=== PATIENT | male | born 1970 | race Caucasian/White ===

== ENCOUNTER → 2017-12-23 16:44 | Outpatient (CLI) | payer BC, SELFPAY ==
--- NOTE | 2017-12-23 16:53 | XR_ITS ---
XR shoulder RT min 2V HISTORY: ITS.REASON: ACUTE PAIN OF RIGHT SHOULDER ORDERING PHYSICIAN: LEXUS Harris PATIENT AGE: 47 years Comparison: None FINDINGS: No fracture or dislocation. No lytic or blastic change. There is normal mineralization. The joint spaces are well-preserved. There are minimal hypertrophic changes of the acromioclavicular joint inferiorly. The subacromial space is well-preserved. IMPRESSION: Minimal osteoarthritic change of the AC joint otherwise negative
== END ==
PROVIDERS: PCP Family Medicine; Visit Provider Physician Assistant
DX: M25.511 Pain in right shoulder (principal)
CPT/HCPCS: 73030

== ENCOUNTER → 2020-10-02 12:14 | Outpatient (CLI) | payer BC, SELFPAY ==
--- NOTE | 2020-10-02 12:20 | XR_ITS ---
PROCEDURE: XR SHOULDER LT MIN 2V CLINICAL INDICATION: LT SHOULDER PAIN COMPARISON: CR SHOULDCMRT XR shoulder RT min 2V from 12/23/2017 FINDINGS: No fracture or dislocation. No lytic or blastic change. There is normal mineralization. The joint spaces are well-preserved. No significant degenerative/arthritic changes. No erosive changes evident. Other findings:There is mild left apical pleural thickening. IMPRESSION: Negative left shoulder Dictated by: Abdullahi Pedersen MD 10/02/2020 14:40 Abdullahi Pedersen MD in [place] 10/02/2020 14:40
--- NOTE | 2020-10-02 12:20 | XR_ITS ---
PROCEDURE: XR CHEST 2V CLINICAL HISTORY: LT CHEST PAIN COMPARISON: No exams were available for comparison FINDINGS: The cardiomediastinal silhouette and pulmonary vascularity are within normal limits. The lungs are clear without infiltrates, suspicious nodules, or pleural effusions. Calcified granuloma is present in middle lobe. No acute bony findings. IMPRESSION: No acute findings. Dictated by: Abdullahi Pedersen MD 10/02/2020 14:32 Abdullahi Pedersen MD in [place] 10/02/2020 14:32
== END ==
PROVIDERS: PCP Family Medicine; Visit Provider Family Medicine
DX: R07.9 Chest pain, unspecified (principal); M25.512 Pain in left shoulder
CPT/HCPCS: 71046; 73030

== ENCOUNTER → 2020-10-17 08:10 | Outpatient (CLI) | payer BC, SELFPAY ==
--- NOTE | 2020-10-17 | CA_ITS ---
APPROVED REPORT Exam: Exercise Treadmill Technologist: Rosemarie Eldridge, Ht: 5 ft 9 in Wt: 178 lbs BSA: 1.97 m2 HR: 95 bpm BP: 132/83 mmHg Rhythm: SINUS RHYTHM Medical History Medical History: HTN Medications: HCTZ,,,,, Nexium,,,,, BuspAR,,,,, Singulair,,,,, Allergies: No known drug allergies Cardiac Risk Factors: HTN, FHX of CAD, Smoking Stress Test Details Test: Asael HR Resting HR: 106 bpm Max Heart Rate (APMHR): 168.167367 bpm Max HR Achieved: 156 bpm Target HR (85% APMHR): 142.485921 bpm % of APMHR: 92.86 Recovery HR: 135 bpm BP Resting BP: 132.0/83.0 mmHg Max BP: 186.0/92.0 mmHg Recovery BP: 186.0/92.0 mmHg ECG Resting ECG: SINUS RHYTHM Clinical Exercise duration: 08:09 min Highest Stage Achieved: Exercise capacity: 10.1 METs Stress ECG Conclusion ASAEL PROTOCOL COMPLETED. EXERCISED 8:09. METS = 10.1. MAX HEART RATE 156 BPM WHICH IS 93% OF PM FOR AGE. MAX BP 186/92. TEST STOPPED DUE TO SOA AND LEG CRAMPS. POSITIVE FOR CHEST PAIN BEFORE,DURING AND AFTER TEST(NO CHANGE IN CONSISTENCY) SOA AT PEAK EXERCISE. NO ECTOPY. LESS THAN 1.5MM ST DEPRESSION. GXT ONLY. BP RESPONSE APPROPRIATE. NO ECTOPY. CP BEFORE,DURING AND AFTER EXERCISE(NO CHANGE IN INTENSITY). SOA DURING PEAK EXERCISE. AVERAGE EXERCISE CAPACITY. NORMAL GXT. Test Summary REST . . . . . . . Standing REST . . . . . . . Sitting REST 02:22 0.0 0.0 106 . 132/ 83 . . Stage 1 01:00 10.0 1.7 106 . . . . Stage 1 02:00 10.0 1.7 110 . . . . Stage 1 03:00 10.0 1.7 113 . 180/ 95 . . Stage 2 01:00 12.0 2.5 120 . . . . Stage 2 02:00 12.0 2.5 134 . . . . Stage 2 03:00 12.0 2.5 136 . 173/ 86 . . Stage 3 01:00 14.0 3.4 147 . . . . Stage 3 02:00 14.0 3.4 155 . . . . Stage 3 02:09 14.0 3.4 155 . . . Stop exercise at 08:09 RECOVERY 01:00 0.0 0.0 135 . 186/ 92 . . RECOVERY 02:00 0.0 0.0 0 . 186/ 92 . . RECOVERY 03:00 0.0 0.0 105 . 186/ 92 . . RECOVERY 04:00 0.0 0.0 101 . 156/ 72 . . RECOVERY 05:00 0.0 0.0 98 . 156/ 72 . . RECOVERY 05:54 0.0 0.0 95 . 156/ 72 . . Electronically signed by : Quoc López, 10/17/2020 10:35:39
== END ==
PROVIDERS: PCP Family Medicine; Visit Provider Family Medicine
DX: R07.9 Chest pain, unspecified (principal)
CPT/HCPCS: 93017

== ENCOUNTER → 2021-07-03 14:02 | Outpatient (CLI) | payer BC, SELFPAY ==
--- NOTE | 2021-07-03 14:06 | CT_ITS ---
FINAL REPORT CLINICAL HISTORY: H/O NICOTINE DEPENDENCE FINDINGS: CTDI vol (mGy): 2.[address] images of the chest were obtained using the low-dose protocol for screening. There is no evidence of mediastinal or hilar mass or adenopathy. No axillary mass or adenopathy is identified. On the lung window images, a 4 mm nodule is seen in the left upper lobe on image number 71. There is diffuse, mild bronchial wall thickening consistent with bronchitis. Mild emphysema is seen and mild pulmonary scarring. Note is made of a calcified granuloma in the right lower lobe. IMPRESSION: 4 mm nodule in the left upper lobe. Lung RADS category 2. Recommend 12 month followup low-dose CT for further evaluation. Reviewed, Interpreted and Dictated by Isaac Martinez III, MD Transcribed by Yoly Rubalcava Authenticated by Isaac Martinez III, MD on 07/03/2021 03:21:21 PM [facility]
== END ==
PROVIDERS: PCP Family Medicine; Visit Provider Family Medicine
DX: Z87.891 Personal history of nicotine dependence (principal); Z12.2 Encounter for screening for malignant neoplasm of respiratory organs
CPT/HCPCS: 71271

== ENCOUNTER → 2022-10-05 13:32 | Outpatient (POV) | payer BC, SELFPAY | PROVIDERS: Visit Provider Dermatology | DX: Z00.00 Encounter for general adult medical examination without abnormal findings (principal) ==

== ENCOUNTER 2023-12-30 10:11 | Outpatient (CLI) | payer BC, SELFPAY ==
--- NOTE | 2023-12-30 10:14 | CT_ITS ---
FINAL REPORT TECHNIQUE: Thin section axial images were obtained from the lung apices to the upper abdomen by computed tomography. Reformatted images were obtained and reviewed. This study was performed with techniques to keep radiation doses al low as reasonably achievable (ALARA). Individualized dose reduction techniques using automated exposure control or adjustment of mA and/or kV according to the patient's size were employed. CLINICAL HISTORY: lung cancer screening, smoker, 2 packs per day x 40 yrs, COPD COMPARISON: 07/03/2021 FINDINGS: CHEST CT LOW DOSE CTDI vol (mGy): 2.90 DLP (mGy-cm): 105.77 There is no axillary adenopathy. Small mediastinal nodes are noted. The heart is normal in size. There are mild coronary artery calcifications. There is no pericardial or pleural effusion. There is mild emphysema and mild pulmonary scarring. Lung window images demonstrate a 3 mm left upper lobe nodule on image 24, stable. There is a new posterior right upper lobe 6 mm nodule on image 28. Calcified granuloma is seen in the right lower lobe. Limited images of the upper abdomen are unremarkable. IMPRESSION: New posterior right upper lobe nodule Lung-RADS category 4A. Recommend 3 month follow up low dose chest CT. Reviewed, Interpreted and Dictated by Isaac Martinez III, MD Transcribed by Leonora Sandoval Authenticated and [facility]
== END 2023-12-30 23:59 | disposition home or self-care (01) ==
LOC: RAD 10:11
PROVIDERS: PCP Physician Assistant; Visit Provider Physician Assistant
DX: F17.210 Nicotine dependence, cigarettes, uncomplicated (principal)
CPT/HCPCS: 71271

== ENCOUNTER 2024-04-27 08:55 | Emergency (ER) | payer BC, SELFPAY ==
--- NOTE | 2024-04-27 09:12 | XR_ITS ---
FINAL REPORT CLINICAL HISTORY: Right hand pain COMPARISON: None FINDINGS: RIGHT HAND Three views demonstrate an oblique fracture of the distal 5th metacarpal. There is mild overlap of the fracture fragments. The visualized joint spaces are normally aligned. Dorsal hand soft tissue swelling is noted. IMPRESSION: Distal 5th metacarpal fracture with mild overlap of the fracture fragments and soft tissue swelling. Reviewed, Interpreted and Dictated by Isaac Martinez III, MD Transcribed by Leonora Sandoval Authenticated and [facility]
[2024-04-27 09:40] VITALS: BP 131/78; PULSE 79; RESP 21; TEMP 36.6; O2SAT 98; BMI 24.8
--- NOTE | 2024-04-27 09:58 | ED_ITS ---
Discharge Plan Disposition Patient Disposition: Home, Self-Care Condition: Good Prescriptions Prescriptions: New ibuprofen 600 mg tablet 600 mg PO Q6HP PRN (Reason: Moderate Pain) Qty: 20 0RF No Action buspirone 5 mg tablet 5 mg PO DAILY Patient Comments: TAKE ONE TABLET BY MOUTH TWICE DAILY atorvastatin 20 mg tablet 20 mg PO DAILY Patient Comments: TAKE ONE TABLET BY MOUTH EVERY DAY lisinopril-hydrochlorothiazide 20-12.5 mg tablet 1 tab PO DAILY Patient Comments: TAKE ONE TABLET BY MOUTH EVERY DAY montelukast 10 mg tablet 10 mg PO DAILY Patient Comments: TAKE ONE TABLET BY MOUTH EVERY DAY albuterol sulfate 90 mcg/actuation HFA aerosol inhaler 2 puff INHALATION Q6HP PRN (Reason: SOA) Patient Comments: INHALE TWO PUFFS BY MOUTH FOUR TIMES DAILY (EVERY 6 HOURS) NEEDED Trelegy Ellipta 100-62.5-25 mcg blister with device 1 ea INHALATION DAILY Patient Comments: INHALE 1 PUFF BY MOUTH EVERY DAY Referrals Follow up/Referrals: Rainer Walsh MD [Primary Care Provider] - See instructions Dash Quijano DO [Staff Physician] - See instructions (Call office and make appointment) Activity Restrictions/Add. Instructions Additional Instructions/Restrictions: *RICE, Rest the extremity, Ice 15-20 minutes 3-4 times daily, Compress- wear the fransisca wrap as discussed as much as possible to help reduce swelling and pain, Elevate the extremity when at rest *UInar Gutter is for support and help control swelling, Be sure that is not to tight but not to loose either *Elevate when resting? *Ibuprofen 600 every 6-8 hours as needed for pain an inflammation. If need something more can take Tylenol in between doses of Ibuprofen to help Immediately follow up with your family doctor for new or worsening of symptoms, or no noticeable improvement over the next 3-[address] Salazar office and make appointment with Orthopedics Clinical Impressions Clinical Impression: Fracture of metacarpal Qualifiers: Encounter type: initial encounter Metacarpal bone: fifth Fracture type: closed Metacarpal location: unspecified portion of metacarpal Fracture alignment: d isplaced Laterality: right Qualified Code(s): S62.306A - Unspecified fracture of fifth metacarpal bone, right hand, initial encounter for closed fracture Instructions Patient Instructions: DI for Boxer's Fracture, How To Perform RICE (Rest, Ice, Compress, Elevate), Hand Fracture Print Language Print Language: Kinyarwanda Discharge ED Provider: Blaire Reynolds [facility] General Stated complaint: AO 04/25/24 right hand pain Mode of Arrival: Ambulatory Source of Information: Patient Limitations: No Limitations Time Seen by Provider: 04/27/24 09:59 Description of Symptoms (Recalled from Triage Doc. by RN): PATIENT C/O INJURY TO RIGHT HAND AFTER IT GOT HIT BY THE DRILL ON A BATTERY TUESDAY HEENT Symptoms (Recalled from RN notes): No Resp Symptoms (Recalled from RN notes): No Skin Symptoms (Recalled from RN notes): No MS Symptoms (Recalled from RN notes): Yes Functional Status (Recalled from RN notes): WNL History of Present Illness Provider Complaint: Patient states that he was using a drill on his lawnmower yesterday when the drill spun around and hit him in the top of his hand States since then he has been having pain and swelling Related Data Home Medications ?Medication ?Instructions ?Recorded ?Confirmed albuterol sulfate 90 mcg/actuation 2 puff inhalation Q6HP PRN SOA 04/27/24 04/27/24 aerosol inhaler atorvastatin 20 mg tablet 20 mg PO DAILY 04/27/24 04/27/24 buspirone 5 mg tablet 5 mg PO DAILY 04/27/24 04/27/24 fluticasone fur. 100 mcg-umeclid 1 ea inhalation DAILY 04/27/24 04/27/24 62.5 mcg-vilant 25 mcg inhalat.powder (Trelegy Ellipta) lisinopril 20 1 tab PO DAILY 04/27/24 04/27/24 mg-hydrochlorothiazide 12.5 mg tablet montelukast 10 mg tablet 10 mg PO DAILY 04/27/24 04/27/24 Previous Rx's ?Medication ?Instructions ?Recorded ibuprofen 600 mg tablet 600 mg PO Q6HP PRN Moderate Pain 04/27/24 #20 tabs Allergies Allergy/AdvReac Type Severity Reaction Status Date / Time No Known Allergies Allergy Verified 08/22/18 13:51 Worker's Comp Is this a Worker's Comp case?: No [facility] Disclaimer: The information contained in this section may have been updated after the patient was seen, as this information can be updated by other users. Social History Smoking Status: Current every day smoker tobacco type: cigarettes packs per day: 2 alcohol intake: never current occupational status: employed Travel in the last 8 weeks: None caffeine: Yes ROS Obtained: Yes All systems reviewed & no additional complaints except as documented and Yes Systems reviewed as appropriate & no additional complaints except as documented Constitutional Constitutional: Reports system reviewed and no additional complaints, except as documented and Reports as per HPI ENT Ears, Nose, Mouth, and Throat: Reports system reviewed and no additional complaints, except as documented and Reports as per HPI Cardiovascular Cardiovascular: Reports system reviewed and no additional complaints, except as documented and Reports as per HPI Respiratory Respiratory: Reports system reviewed and no additional complaints, except as documented and Reports as per HPI Gastrointestinal Gastrointestingal: Reports system reviewed and no additional complaints, except as documented and as per HPI Musculoskeletal Musculoskeletal: Reports system reviewed and no additional complaints, except as documented, Reports as per HPI and Reports other Comments: Pain and swelling in top of hand after getting hit by drill yesterday Physical Exam General General appearance: alert and in no apparent distress ENT ENT exam: Present mucous membranes moist Neck Neck exam: Present normal inspection, full ROM and trachea midline Chest Chest inspection: Present normal inspection and symmetric chest wall rise Respiratory Respiratory exam: Present normal lung sounds bilaterally; Absent respiratory distress or wheezes Cardiovascular Cardiovascular exam: Present regular rate, normal rhythm and normal heart sounds Expanded Upper Extremity Exam Right: Hand exam: Present tenderness, swelling and ecchymosis Hand L/R back image: 2 1. swelling noted with bruising pain with movement Neurological Exam Neurological exam: Present alert, oriented X3 and normal gait Medical Decision Making Medical Records Screening: Per USPSTF and CDC recommendations, given the prevalence of disease in our region, it is our hospital?s policy to screen for HIV and viral Hepatitis for all patients aged 18 and over and those with ongoing risk factors. Los Inquiry Pt receiving controlled substance: No Los was queried for this patient: No Vital Signs: 04/27/24 09:40 Temperature 97.9 F Temperature Source Oral Pulse Rate [Left Brachial] 79 Respiratory Rate 21 Blood Pressure [Left Arm] 131/78 Blood Pressure Mean [Left Arm] 95 Blood Pressure Source [Left Arm] Automatic Cuff Blood Pressure Position [Left Arm] Sitting 02 Sat by Pulse Oximetry 98 Oxygen Delivery Method Room Air Orders (Tests/Meds): ORDERS Category Date Time Status Hand XR right minimum 3 views [XR hand RT min 3V] Stat Exams 04/27/24 09:12 Taken Radiology Data #1: Image(s): Hand Image Reviewed: Yes I reviewed the patient's radiology image and Yes I have reviewed radiologist's interpretation IMPRESSION: Distal 5th metacarpal fracture with mild overlap of the fracture fragments and soft tissue swelling. Physician Consults Physician Consulted: Dr Quijano Time: 10:12 Reason -: Orthopedic Eval/Care Comment/Response: Spoke with Dr Quijano, advised to place in ulnar gutter splint and have him call office for appointment Procedures Orthopedic Splinting/Casting Injury #1: Side: right Upper Extremity Injury Location: hand Upper Extremity Immobilizer: ulnar gutter and applied by nurse/dr bhagat Post Cast/Splinting Neuro Status: intact and no change Post Cast/Splinting Vasc Status: intact and no change
[2024-04-27 10:50] VITALS: BP 131/78; PULSE 79; RESP 21; TEMP 36.6; O2SAT 98
== END 2024-04-27 10:52 | disposition home or self-care (01) ==
PROVIDERS: Emergency Provider Nurse Practitioner; PCP Family Medicine
DX: S62.306A Unspecified fracture of fifth metacarpal bone, right hand, initial encounter for closed fracture (principal); W22.8XXA Striking against or struck by other objects, initial encounter
CPT/HCPCS: 29125; 73130; 99213; G0381

== ENCOUNTER 2024-05-08 08:25 | Outpatient (CLI) | payer BC, SELFPAY ==
--- NOTE | 2024-05-08 08:29 | XR_ITS ---
FINAL REPORT CLINICAL HISTORY: Right Lisa Fx COMPARISON: 04/27/2024 FINDINGS: RIGHT HAND Two views of the right hand were obtained. There is redemonstration of the oblique fracture through the distal portion of the right fifth metacarpal. There is approximately half shaft width lateral displacement of the distal fracture fragment. There is no intra-articular extension. IMPRESSION: Redemonstration right fifth metacarpal fracture with half shaft width displacement distal fracture fragment. Reviewed, Interpreted and Dictated by Omega Candelario MD Transcribed by Evelyn Pressley Authenticated and [facility]
== END 2024-05-08 23:59 | disposition home or self-care (01) ==
LOC: RAD 08:26
PROVIDERS: PCP Family Medicine; Visit Provider Orthopaedic Surgery
DX: S62.336A Displaced fracture of neck of fifth metacarpal bone, right hand, initial encounter for closed fracture (principal)
CPT/HCPCS: 73120

== ENCOUNTER 2024-05-22 08:47 | Outpatient (CLI) | payer BC, SELFPAY ==
--- NOTE | 2024-05-22 08:55 | XR_ITS ---
FINAL REPORT CLINICAL HISTORY: left hand fx, broke 5th metacarpal april 27 COMPARISON: 05/08/2024 FINDINGS: LEFT HAND Three views demonstrate an oblique fracture of the distal fifth metacarpal with overlap of the fracture fragment. Bony alignment has not significantly changed from the prior study. There is a small amount of callus formation. The visualized joint spaces are normally aligned. The soft tissues are unremarkable. IMPRESSION: Stable fifth metacarpal fracture with small amount of callus formation. Reviewed, Interpreted and Dictated by Isaac Martinez III, MD Transcribed by Leonora Sandoval Authenticated and . [facility]
== END 2024-05-22 23:59 | disposition home or self-care (01) ==
LOC: RAD 08:48
PROVIDERS: PCP Family Medicine; Visit Provider Physician Assistant Surgical
DX: S62.336A Displaced fracture of neck of fifth metacarpal bone, right hand, initial encounter for closed fracture (principal)
CPT/HCPCS: 73130

== ENCOUNTER 2024-06-26 08:53 | Outpatient (CLI) | payer BC, SELFPAY ==
--- NOTE | 2024-06-26 08:57 | XR_ITS ---
FINAL REPORT CLINICAL HISTORY: f/u fracture COMPARISON: 05/22/2024 FINDINGS: RIGHT HAND Three views demonstrate the oblique mildly displaced fracture of the fifth metacarpal, with mild shortening of the fifth metacarpal. The visualized joint spaces are normally aligned, and no intra-articular extension is identified. There is less callus formation than would be expected in a 2-month interval. The soft tissues are unremarkable. IMPRESSION: No significant change in the oblique mildly displaced fracture of the fifth metacarpal as described since the prior exam of 05/22/2024. Reviewed, Interpreted and Dictated by Omega Candelario MD Transcribed by Jasmina Freeman Authenticated and [facility]
== END 2024-06-26 23:59 | disposition home or self-care (01) ==
LOC: RAD 08:55
PROVIDERS: PCP Family Medicine; Visit Provider Physician Assistant Surgical
DX: M79.641 Pain in right hand (principal); S62.336A Displaced fracture of neck of fifth metacarpal bone, right hand, initial encounter for closed fracture
CPT/HCPCS: 73130

== ENCOUNTER 2025-04-12 07:14 | Outpatient (CLI) | payer BC, SELFPAY ==
--- NOTE | 2025-04-12 07:22 | CT_ITS ---
FINAL REPORT CLINICAL HISTORY: SCREENING current smoker 2 ppd/40 years ctdo vol 2.9 dlp 106.03 COMPARISON: 12/30/2023 FINDINGS: CT CHEST LOW DOSE SCREENING HISTORY: Screening exam for lung cancer. DOSE: CTDI vol: 2.90 mGy, DLP: 106.03 mGy*cm TECHNIQUE: Axial CT without IV contrast administration using low dose protocol. This study was performed with techniques to keep radiation doses as low as reasonably achievable, (ALARA). Individualized dose reduction techniques using automated exposure control or adjustment of mA and/or kV according to the patient's size were employed. No acute lung disease is present. There is a right upper lobe nodule on image 30, series 3 measuring 4 mm, was 6 mm compatible with benign etiology. No new pulmonary mass or nodule is identified. There is minimal scarring in the anterior right upper lobe. There is evidence of old calcified granulomatous disease. No pleural or pericardial effusion is seen. No adenopathy or mass lesion is present. IMPRESSION: No evidence of primary lung cancer LUNG RADS CATEGORY 2 RECOMMENDATION: 12 month LDCT follow up Reviewed, Interpreted and Dictated by Angie Delacruz MD Transcribed by Queta Anderson Authenticated and [facility]
== END 2025-04-12 23:59 | disposition home or self-care (01) ==
LOC: RAD 07:15
PROVIDERS: PCP Family Medicine; Visit Provider Family Medicine
DX: Z12.2 Encounter for screening for malignant neoplasm of respiratory organs (principal); F17.210 Nicotine dependence, cigarettes, uncomplicated; R91.1 Solitary pulmonary nodule; J84.10 Pulmonary fibrosis, unspecified; J98.4 Other disorders of lung
CPT/HCPCS: 71271

== ENCOUNTER 2025-06-07 07:41 | Outpatient (CLI) | payer BC, SELFPAY ==
--- OUTSIDE RECORDS SUMMARY | 2023-12-09 04:00 | XMS_ITS ---
Author Organization [facility] Address [address] [place] [id number] Care Team Providers Care Trial Justice Name Role Phone Rainer Walsh Primary Care Provider Nataliia Rooney Unavailable [phone] Allergies No Known Allergies Results Component Value Reference Range Notes Glycohemoglobin A1c (in hous e) Reviewed date:12/12/2023 01:09:19 PM Interpretation:5.2 Normal Performing Lab: Notes/Report: 5.2 Normal glycohemoglobin 5.2% 5 - 6.5 % P-Comprehensive Metabolic Pa torres (CMP) Reviewed date:12/12/2023 01:09:18 PM Interpretation:Normal Performing Lab: Notes/Report: CLIA: [id number] Lencho Forrest MD, Radiation Oncology Therapist [address] [place] [address] , [address], [place] [address] Test performed by [facility], [facility] Sodium 137 135-145 mEq/L Potassium 4.4 3.5-5.3 mEq/L Chloride 100 97-108 mEq/L CO2 24 22-32 mEq/L Glucose 89 65-99 mg/dL BUN 9 6-20 mg/dL Creatinine 0.83 0.70-1.30 mg/dL Calcium 9.8 8.6-10.4 mg/dL eGFR by Creatinine 103 >59 mL/min/1.73m2 Protein 6.8 6.0-8.3 g/dL Albumin 4.6 3.5-5.3 g/dL Alkaline Phosphatase 100 40-129 IU/L ALT (SGPT) 22 <5-55 IU/L AST (SGOT) 30 <5-46 IU/L Bilirubin, Total 0.9 <0.2-1.2 mg/dL A/G Ratio 2.1 1.1-2.5 mg/dL P-Lipid Panel Reviewed date:12/12/2023 01:09:18 PM Interpretation:Normal Performing Lab: Notes/Report: Test performed by [facility], [address] , [address], [place] [address] Lencho Forrest MD, Radiation Oncology Therapist CLIA: [id number] Cholesterol 149 <200 mg/dL Triglycerides 67 <150 mg/dL HDL Cholesterol 54 >39 mg/dL Cholesterol / HDL Ratio 2.76 0.00-4.99 Ratio Non-HDL Cholesterol 95 <130 mg/dL LDL Cholesterol (Calculation) 82 <130 mg/dL LDL Cholesterol Levels* Less than 100 mg/dL Optimal 100 to 129 mg/dL Near Optimal/ Above Optimal 130 to 159 mg/dL Borderline High 160 to 189 mg/dL High 190 mg/dL and above Very High * Categories as recommended by the 2004 ATPIII guidelines LDL/HDL Ratio 1.5 <3.3 Ratio LDL Cholesterol Patient History Test Date: 12/09/2023 LDL Results: 82 Units: mg/dL % Change: - P-PSA Reviewed date:12/12/2023 01:09:19 PM Interpretation:Normal Performing Lab: Notes/Report: Test performed by [facility], [facility] [address] [place] [address] , [address], [place] [address] Lencho Forrest MD, Radiation Oncology Therapist CLIA: [id number] PSA 0.80 <4.00 ng/mL Please note this is an ultrasensitive PSA assay with a lower limit of detection of 0.014 ng/mL. This test is performed by the Charlene ECLIA methodology. Values obtained with different assay methods or kits cannot be directly compared. CT SCAN : CHEST, LUNG CANCER SCREENING LOW DOSE Reviewed date:01/05/2024 01:14:57 PM Interpretation:new nodule, recommend 3 month f/u Performing Lab: Notes/Report: new nodule, recommend 3 month f/u REASON FOR VISIT 2 Month Check Up on Cholesterol, Needs labs with PSA, low dose chest CT, & Tdap Medications Medication SIG (Take, Route, Frequency, Duration) Notes Start Date End Date Status busPIRone HCl 5 MG 1 tab(s) orally 2 ti mes a day; Duration: 90 days Active Atorvastatin Calcium 20 MG 1 tablet Oral ly Once a day; Duration: 90 days 10/06/2023 Active Trelegy Ellipta 100-62.5-25 MCG/ACT 1 puff(s) inhaled once a day Active Singulair 10 MG 1 tab(s) orally once a day; Duration: 90 days Active Lisinopril-hydroCHLOROthiaz douglas 20-12.5 MG 1 tab(s) orally once a day; Duration: 90 days Active Albuterol Sulfate HFA 108 (90 Base) MCG/ACT inhale two puffs by mouth four times daily as needed inhaled every 6 hours, prn Active Trelegy Ellipta 100-62.5-25 MCG/ACT 1 puff(s) inhaled once a day Active Singulair 10 MG 1 tab(s) orally once a day; Duration: 30 days Active NexIUM 24HR 20 MG 1 cap(s) orally once a day 11/18/2014 Active Lisinopril-hydroCHLOROthiaz douglas 20-12.5 MG 1 tab(s) orally once a day; Duration: 30 days Active Vital Signs Blood pressure systolic 114 mm Hg 12/09/19 24 Blood pressure diastolic 78 mm Hg 024 Heart Rate 88 /min 12/09/2023 Height 70 in 12/09/2023 Weight 180.6 lbs 12/09/2023 BMI 25.91 kg/m2 12/09/2023 Encounters Encounter Location Date Provider Diagnosis [facility] [address] [place] [phone] 12/09/2023 Nataliia Jesussydnie Cigarette nicotine dependence without complication F17.210 ; Essential hypertension I10 ; Hyperlipidemia, unspecified hyperlipidemia type E78.5 ; Elevated glucose R73.09 ; Screening for lung cancer Z12.2 and Screening PSA (prostate specific antigen) Z12.5 Assessments Encounter Date Diagnosis (ICD Code) Assessment Notes Treatment Notes Treatment Clinical Notes Section Notes 12/09/2023 Cigarette nicotine dependence without complication (ICD-10 - F17.210) 12/09/2023 Essential hypertension (ICD-10 - I10) 12/09/2023 Hyperlipidemia, unspecified hyperlipidemia type (ICD-10 - E78.5) 12/09/2023 Elevated glucose (ICD-10 - R73.09) 12/09/2023 Screening for lung cancer (ICD-10 - Z12.2) 12/09/2023 Screening PSA (prostate specific antigen) (ICD-10 - Z12.5) Plan Of Treatment Next Appt Details Follow Up: via phone to repo rt test results, Reason: Progress Notes * Dahlia ROCAOB:1970 (55 yo M)Acc No.[id number]:12/09/2023 Progress Notes Patient: David DARNELL Provider: LEXUS Sauceda :1970 A ge:53 Y S ex:Male Date:12/09/2023 Address:[address] [place] [address], [place], [id number] Pcp:Rainer Walsh Subjective: * Chief Complaints: * 1 . 2 Month Check Up on Cholesterol. 2. Needs labs with PSA, low dose chest CT, & Tdap. * HPI: E ndocrinology: Maintenance P t presents for a 2 month check up. Pt is fasting today. Pt sts that he has no new concerns or complaints. In September pts glucose was 105 but A1c was normal. Pt is due for Lipid Panel as his medication has been increased. * ROS: D ERMATOLOGY: no R jessica. n o H lakeisha. G ASTROENTEROLOGY: no N ausea. n o V omiting. U ROLOGY: no D ifficulty urinating. n o B lood in urine. * Medical History: A sthma, Hypertension, Hypercholestrolemia, Anxiety disorder, Colon polyps, Dx 2019, 35 pack year smoking history as of 2020. * Surgical History: c olonoscopy 2018. * Hospitalization/Major Diagno stic Procedure: cy avery [facility] 2007. * Family History: F ather: alive, high blood pressure, bone problems. M other: alive. 2 brother(s) , 1 sister(s) . 2 son(s) , 1 daughter(s) . . * Social History: C URRENT TOBACCO USE S moking Status: Patient does smoke, packs per day: 1.5. C affeine: yes, frequency:2 cups a coffee a day. Past smoking status: yes, PPD: , years: ,determination:, 1 ppd. Alcohol: Yes, Type: , Frequency: ,Years: , Determination:6 beer a day. * Medications: T aking NexIUM 24HR 20 MG Capsule Delayed Release 1 cap(s) orally once a day , Taking Lisinopril-hydroCHLOROthiazide 20-12.5 MG Tablet 1 tab(s) orally once a day , Taking Trelegy Ellipta 100-62.5-25 MCG/ACT Aerosol Powder Breath Activated 1 puff(s) inhaled once a day , Taking Singulair 10 MG Tablet 1 tab(s) orally once a day , Taking Albuterol Sulfate HFA 108 (90 Base) MCG/ACT Aerosol Solution inhale two puffs by mouth four times daily as needed inhaled every 6 hours, prn , Taking Lisinopril-hydroCHLOROthiazide 20-12.5 MG Tablet 1 tab(s) orally once a day , Taking Trelegy Ellipta 100-62.5-25 MCG/ACT Aerosol Powder Breath Activated 1 puff(s) inhaled once a day , Taking Singulair 10 MG Tablet 1 tab(s) orally once a day , Taking busPIRone HCl 5 MG Tablet 1 tab(s) orally 2 times a day , Taking Atorvastatin Calcium 20 MG Tablet 1 tablet Orally Once a day , Medication List reviewed and reconciled with the patient * Allergies: N .K.D.A. Objective: * Vitals: W t:180.6, Temp:97.5, BP:114/78, HR:88, Nurse:ALIA, Ht: 70, BMI:25.91. * Examination: G eneral Examination: General Appearance: N AD. H EENT: u nremarkable.?Oral cavity: n o lesions, mucosa moist and WNL, no erythema. N agatha: s upple, no lymphadenopathy. C hest: n ormal shape and expansion. H eart: R SR. L ungs: c lear to auscultation. A bdomen: bowel sounds present, soft and nontender, no organomegaly or masses, no guarding or rigidity. N eurologic Exam: I ntact, gait normal. S kin: n ormal, no rash. P eripheral pulses: n ormal (2+) bilaterally. E xtremities: n o leg edema. Assessment: * Assessment: 1. E ssential hypertension - I10 (Primary) 2 . C igarette nicotine dependence without complication - F17.210 3 . H yperlipidemia, unspecified hyperlipidemia type - E78.5 4 . E levated glucose - R73.09 5 . S creening for lung cancer - Z12.2 6 . S creening PSA (prostate specific antigen) - Z12.5? Plan: * Treatment: Value Reference Range A /G Ratio 2.1 1.1-2.5 - mg/dL * A lbumin 4.6 3.5-5.3 - g/dL * A lkaline Phosphatase 100 40-129 - IU/L * A LT (SGPT) 22 <5-55 - IU/L * A ST (SGOT) 30 <5-46 - IU/L * B ilirubin, Total 0.9 <0.2-1.2 - mg/dL * B UN 9 6-20 - mg/dL * C alcium 9.8 8.6-10.4 - mg/dL * C hloride 100 97-108 - mEq/L * C O2 24 22-32 - mEq/L * C reatinine 0.83 0.70-1.30 - mg/dL * G lucose 89 65-99 - mg/dL * P otassium 4.4 3.5-5.3 - mEq/L * S odium 137 135-145 - mEq/L * P rotein 6.8 6.0-8.3 - g/dL * e GFR by Creatinine 103 >59 - mL/min/1.73m2 * Smitha Patel 12/12/2023 1:08:45 PM > Pt informed 2.?Cigarette nicotine dependence without complication?Imaging: CT SCAN : CHEST, LUNG CANCER SCREENING LOW DOSE (Performed Date - 12/29/2023)?new nodule, recommend 3 month f/u* Nataliia Rooney 12/09/2023 9: 26:13 AM > Can this be on a TuesdaySarah Longo 12/09/2023 10:02:05 AM > auth# [id number], valid 12/09/2023 through 01/07/2024; CPT 93149Fwhapu,Brynn 12/09/2023 10:25:15 AM > [facility] 12/30/2023 at 10:15am; pt informed; order faxedNataliia Rooney 01/05/2024 1:14:53 PM > see TE 3.?Hyperlipidemia, unspecified hyperlipidemia type?LAB: P-Lipid Panel (Collection Date & Time - 12/09/2023 08:45 AM)?Normal* Value Reference Range C holesterol / HDL Ratio 2.76 0.00-4.99 - Ratio * C holesterol 149 <200 - mg/dL * H DL Cholesterol 54 >39 - mg/dL * L DL Cholesterol (Calculation) 82 <130 - mg/d L * L DL/HDL Ratio 1.5 <3.3 - Ratio * N on-HDL Cholesterol 95 <130 - mg/dL * T riglycerides 67 <150 - mg/dL * Smitha Patel 12/12/2023 1:08:45 PM > Pt informed 4.?Elevated glucose?LAB: Glycohemoglobin A1c (in house) (Collection Date & Time - 12/09/2023)? 5.2 Normal* Value Reference Range g lycohemoglobin 5.2% 5 - 6.5 % * Kalpana Head 12/09/2023 9:5 7:10 AM > Smitha Patel 12/12/2023 1:08:45 PM > Pt informed 5.?Screening PSA (prostate specific antigen)?LAB: P-PSA (Collection Date & Time - 12/09/2023 08:45 AM)?Normal* Value Reference Range P SA 0.80 <4.00 - ng/mL * Smitha Patel 12/12/2023 1:08:45 PM > Pt informed * Procedure Codes: 3 6416 CAPILLARY BLOOD DRAW, 82627 GLYCATED HEMOGLOBIN TEST, Modifiers: QW * Follow Up: v ia phone to report test results * Images: Billing Information: * Visit Code: 10804 Office Visit, Est Pt., Level 4. * Procedure Codes: 33815 CAPILLARY BLOOD DRAW. 56962 GLYCATED HEMOGLOBIN TEST. Modifiers: QW * Electronic signature of LEXUS Urban on 06/07/2025 at 07:43 AM EST Sign off status: Pending * Provider: LEXUS Sauceda Date: 0 12/09/2023 Generated for Estellei ng/Fadianag/eTransmitting on: 1 08/08/2024 07:43 AM EST History and Physical Notes * HPI (History of Present Illness) Category Sub-Category Detail Notes Category Not es Endocrinology Maintenance Pt presents for a 2 month check up. Pt is fasting today. Pt sts that he has no new concerns or complaints. In September pts glucose was 105 but A1c was normal. Pt is due for Lipid Panel as his medication has been increased Examination Category Sub-Category Detail Notes Category Not es General Examination HEENT: unremarkable Heart: RSR Lungs: clear to auscultatio n Abdomen: bowel sounds present , soft and nontender, no organomegaly or masses, no guarding or rigidity Extremities: no leg edema General Appearance: NAD Skin: normal, no rash Neurologic Exam: Intact, gait normal Neck: supple, no lymphaden opathy Oral cavity: no lesions, mucosa m oist and WNL, no erythema Peripheral pulses: normal (2+) bilatera lly Chest: normal shape and exp ansion
--- OUTSIDE RECORDS SUMMARY | 2023-12-30 05:45 | XMS_ITS ---
Author Organization [facility] Address [address] [place] [id number] Care Team Providers Care Feeder Catcher Name Role Phone Rainer Walsh Primary Care Provider [phone] Nataliia Dutton Unavailable [phone] REASON FOR VISIT Tdap only per Leslie Rooney Medications Medication SIG (Take, Route, Frequency, Duration) Notes Start Date End Date Status Lisinopril-hydroCHLOROthiaz douglas 20-12.5 MG 1 tab(s) orally once a day; Duration: 90 days Active Trelegy Ellipta 100-62.5-25 MCG/ACT 1 puff(s) inhaled once a day Active Albuterol Sulfate HFA 108 (90 Base) [...] once a day; Duration: 30 days Active Atorvastatin Calcium 20 MG 1 tablet Oral ly Once a day; Duration: 90 days 10/06/2023 Active Singulair 10 MG 1 tab(s) orally once a day; Duration: 90 days Active busPIRone HCl 5 MG 1 tab(s) orally 2 ti mes a day; Duration: 90 days Active Immunizations Vaccine Route Administration Date Status Comme nts Tetanus Tdap-Adacel (over 7yrs) IM Intramuscular 12/30/2023 Administered Encounters Encounter Location Date Provider Diagnosis [facility] [address] [place] [phone] 12/30/2023 Nataliia Rooney Encounter for immunization Z23 Assessments Encounter Date Diagnosis (ICD Code) Assessment Notes Treatment Notes Treatment Clinical Notes Section Notes 12/30/2023 Encounter for immunization (ICD-10 - Z23) Plan Of Treatment No Information Progress Notes * Dahlia ROCAOB:1970 (55 yo M)Acc No.[id number]:12/30/2023 Patient: David DARNELL Provider: LEXUS Sauceda :1970 A ge:53 Y S ex:Male Date:12/30/2023 Address:[address] [place] [address], [place], [id number] Pcp:Rainer Walsh Subjective: * Chief Complaints: * 1 . Tdap only per Leslie Rooney. * Medical History: * Medications: T aking NexIUM 24HR 20 [...] Tablet 1 tablet Orally Once a day Objective: * Vitals: Assessment: * Assessment: 1. E ncounter for immunization - Z23 (Primary) Plan: * Treatment: * Immunizations: Tetanus Tdap-Adacel (over 7yrs) : 0.5 mL (Route: Intramuscular) given by Kalpana Head on Right Deltoid (Encounter for immunization) * Procedure Codes: 9 0715 Tetanus Tdap-Adacel (over 7yrs) * Images: Billing Information: * Visit Code: * Procedure Codes: 23246 Tetanus Tdap-Adacel (over 7yrs). * Electronic signature of LEXUS Urban on 06/07/2025 at 07:43 AM EST Sign off status: Pending * Provider: LEXUS Sauceda Date: 0 12/30/2023 Generated for Yanet gaitan/Kathy/Loc on: 1 08/08/2024 07:43 AM EST
--- OUTSIDE RECORDS SUMMARY | 2024-11-16 06:30 | XMS_ITS ---
Author Organization [facility] Address [address] [place] [id number] Care Team Providers Care Team Leader/Research Psychologist Name Role Phone JillianAlistairRainer Primary Care Provider Nusrat Childers Unavailable [phone] Allergies No Known Allergies Results Component Value Reference Range Notes P-Vitamin B12 Reviewed date:12/05/2024 04:29:08 PM Interpretation:Normal Performing Lab: Notes/Report: CLIA: [id number] Lencho Forrest MD, Collateral Clerk [address] [place] [address] , [facility], [place] [address] Test performed by [facility] Vitamin B12 231 401-3123 pg/mL P-Comprehensive Metabolic Pa torres (CMP) Reviewed date:12/05/2024 04:29:08 PM Interpretation:Normal Performing Lab: Notes/Report: Test performed by [facility] [address] [place] [address] , [place] [address] Lencho Forrest MD, Collateral Clerk CLIA: [id number] Sodium 136 135-145 mmol/L Potassium 4.6 3.5-5.3 mmol/L Chloride 99 97-108 mmol/L CO2 28 22-32 mmol/L Glucose 93 65-99 mg/dL BUN 7 6-20 mg/dL Creatinine 0.79 0.70-1.30 mg/dL Calcium 9.6 8.6-10.4 mg/dL eGFR by Creatinine 104 >59 mL/min/1.73m2 Protein 7.0 6.0-8.3 g/dL Albumin 4.7 3.5-5.3 g/dL Alkaline Phosphatase 108 40-129 IU/L ALT (SGPT) 18 <5-55 IU/L AST (SGOT) 26 <5-46 IU/L Bilirubin, Total 0.5 <0.2-1.2 mg/dL A/G Ratio 2.0 1.1-2.5 P-PSA Reviewed date:12/05/2024 04:29:08 PM Interpretation:Normal Performing Lab: Notes/Report: Test performed by [employer], [address] , [address], [place] [address] Lencho Forrest MD, Collateral Clerk CLIA: [id number] PSA 0.73 <4.00 ng/mL Please note this is an ultrasensitive PSA assay with a lower limit of detection of 0.014 ng/mL. This test is performed by the [employer] ECLIA methodology. Values obtained with different assay methods or kits cannot be directly compared. REASON FOR VISIT needs refills; possible bloodwork Medications Medication SIG (Take, Route, Frequency, Duration) Notes Start Date End Date Status Singulair 10 MG 1 tab(s) orally once a day; Duration: 90 days Active Trelegy Ellipta 100-62.5-25 MCG/ACT 1 puff(s) inhaled once a day; Duration: 30 days Active busPIRone HCl 5 MG 1 tab(s) orally 2 ti mes a day; Duration: 30 days Active NexIUM 24HR 20 MG 1 cap(s) orally once a day 11/18/2014 Active Atorvastatin Calcium 20 MG 1 tablet Oral ly Once a day; Duration: 15 days Active Lisinopril-hydroCHLOROthiaz douglas 20-12.5 MG 1 tab(s) orally once a day; Duration: 90 days Active Albuterol Sulfate HFA 108 (90 Base) MCG/ACT inhale two puffs by mouth four times daily as needed inhaled every 6 hours, prn Active Problems Problem Type SNOMED Code ICD Code Onset Dates Problem Status W/U Status Risk Notes Problem Benign prostatic hypertrophy without outflow obstruction ([id number]) Benign prostatic hyperplasia without lower urinary tract symptoms (N40.0) Active confirmed Vital Signs Blood pressure systolic 130 mm Hg 11/17/19 25 Blood pressure diastolic 80 mm Hg 025 Heart Rate 81 /min 11/16/2024 Height 70 in 11/16/2024 Weight 185.4 lbs 11/16/2024 BMI 26.6 kg/m2 11/16/2024 Encounters Encounter Location Date Provider Diagnosis [facility] [address] [place] [id number] 11/16/2024 Nusrat Childers Essential hypertensi on I10 ; Mild persistent asthma without complication J45.30 ; Cigarette nicotine dependence without complication F17.210 ; Benign prostatic hyperplasia without lower urinary tract symptoms N40.0 and BMI 26.0-26.9,adult Z68.26 Assessments Encounter Date Diagnosis (ICD Code) Assessment Notes Treatment Notes Treatment Clinical Notes Section Notes 11/16/2024 Essential hypertension (ICD-10 - I10) 11/16/2024 Mild persistent asthma without complication (ICD-10 - J45.30) 11/16/2024 Cigarette nicotine dependence without complication (ICD-10 - F17.210) 11/16/2024 Benign prostatic hyperplasia without lower urinary tract symptoms (ICD-10 - N40.0) 11/16/2024 BMI 26.0-26.9,adult (ICD-10 - Z68.26) Plan Of Treatment Next Appt Details Follow Up: 5 M, Reason: Progress Notes * Dahlia ROCAOB:1970 (55 yo M)Acc No.[id number]:11/16/2024 Progress Notes Patient: David DARNELL Provider: Nusrat Childers M.D. :1970 A ge:54 Y S ex:Male Date:11/16/2024 Address:[address] [place] [address], [id number] Pcp:Rainer Walsh Subjective: * Chief Complaints: * 1 . Needs refills; possible bloodwork. * HPI: C ardiology: The pt is here today for a check up on Hypertension. Pt states he is doing good and denies any new concerns. Pt states he is needing refills sent to Clinic pharmacy. Pt is fasting except for a cup of coffee. Denies : Chest Pain. D enies : Short of Breath. D enies : Dizziness. D enies : Palpitations. * ROS: D ERMATOLOGY: no R jessica. n o H lakeisha. G ASTROENTEROLOGY: no N ausea. n o V omiting. n o D iarrhea.? U ROLOGY: no D ifficulty urinating. n o B lood in urine. * Medical History: A sthma, Hypertension, Hypercholestrolemia, Anxiety disorder, Colon polyps, Dx 2019, 35 pack year smoking history as of 2020. * Surgical History: c olonoscopy 2019. * Hospitalization/Major Diagno stic Procedure: cy avery, [facility] 2007. * Family History: F ather: [...] cap(s) orally once a day , Taking Albuterol Sulfate HFA 108 (90 Base) MCG/ACT Aerosol Solution inhale two puffs by mouth four times daily as needed inhaled every 6 hours, prn , Taking Lisinopril-hydroCHLOROthiazide 20-12.5 MG Tablet 1 tab(s) orally once a day , Taking Singulair 10 MG Tablet 1 tab(s) orally once a day , Taking busPIRone HCl 5 MG Tablet 1 tab(s) orally 2 times a day , Taking Trelegy Ellipta 100-62.5-25 MCG/ACT Aerosol Powder Breath Activated 1 puff(s) inhaled once a day , Taking Atorvastatin Calcium 20 MG Tablet 1 tablet Orally Once a day , Medication List reviewed and reconciled with the patient * Allergies: N .K.D.A. Objective: * Vitals: W t: 185.4, Temp: 97.9, BP: 130/80, HR: 81, O2 Sat: 99% on RA, Nurse: BRIANNA, Ht: 70, BMI:26.6. * Examination: G eneral Examination: General Appearance: N AD. H EENT: u nremarkable.?Oral cavity: n o lesions, mucosa moist and WNL, no erythema. N agatha: s upple, no lymphadenopathy. C hest: n ormal shape and expansion. H eart: R SR. L ungs: c lear to auscultation. A bdomen: s oft and nontender , no organomegaly or masses. N eurologic Exam: I ntact, gait normal. S kin: n ormal, no rash. P eripheral pulses: n ormal . B ack: n ormal. E xtremities: n o leg edema. Assessment: * Assessment: 1. E ssential hypertension - I10 (Primary) 2 . M ild persistent asthma without complication - J45.30 3 . C igarette nicotine dependence without complication - F17.210 4 . B enign prostatic hyperplasia without lower urinary tract symptoms - N40.0 5 . B NM 26.0-26.9,adult - Z68.26 Plan: * Treatment: Value Reference Range V itamin B12 979 984-6858 - pg/mL * Kalpana Head 12/05/2024 04 :28:32 PM EDT > Patient informed of normal results. ?LAB: P-Comprehensive Metabolic Panel (CMP) (Collection Date & Time - 11/16/2024 11:11 AM)?Normal* Value Reference Range A /G Ratio 2.0 1.1-2.5 - * A lbumin 4.7 3.5-5.3 - g/dL * A lkaline Phosphatase 108 40-129 - IU/L * A LT (SGPT) 18 <5-55 - IU/L * A ST (SGOT) 26 <5-46 - IU/L * B ilirubin, Total 0.5 <0.2-1.2 - mg/dL * B UN 7 6-20 - mg/dL * C alcium 9.6 8.6-10.4 - mg/dL * C hloride 99 97-108 - mmol/L * C O2 28 22-32 - mmol/L * C reatinine 0.79 0.70-1.30 - mg/dL * G lucose 93 65-99 - mg/dL * P otassium 4.6 3.5-5.3 - mmol/L * S odium 136 135-145 - mmol/L * P rotein 7.0 6.0-8.3 - g/dL * e GFR by Creatinine 104 >59 - mL/min/1.73m2 * Kalpana Head 12/05/2024 04 :28:32 PM EDT > Patient informed of normal results. 2.?Benign prostatic hyperplasia without lower urinary tract symptoms?LAB: P-PSA (Collection Date & Time - 11/16/2024 11:11 AM)?Normal* Value Reference Range P SA 0.73 <4.00 - ng/mL * Kalpana Heda 12/05/2024 04 :28:32 PM EDT > Patient informed of normal results. * Procedure Codes: G 8950 PREHTN/HTN BP DOC INDCD F/U DOC, G8752 MOST RECENT SYSTOLIC BP < 140MM HG, G8754 MOST RECENT DIASTOLIC BP < 90MM HG, G8420 BMI<30 AND >=22 CALC & DOCU, 3017F COLORECTAL CA SCREEN DOC REV * Preventive Medicine: Screening / Special Tests: C olonoscopy , polyps, pandiverticulosis, hemorrhoids, repeat 5-10 years. * Follow Up: 5 M * Images: Billing Information: * Visit Code: 87287 Office Visit, Est Pt., Level 4. * Procedure Codes: G8950 PREHTN/HTN BP DOC INDCD F/U DOC. G8752 MOST RECENT SYSTOLIC BP < 140MM HG. G8754 MOST RECENT DIASTOLIC BP < 90MM HG. G8420 BMI<30 AND >=22 CALC & DOCU. 3017F COLORECTAL CA SCREEN DOC REV. * Electronic signature of Nusrat Childers MD on 06/07/2025 at 07:43 AM EST Sign off status: Pending * Provider: Nusrat Childers M.D. Date: 0 11/16/2024 Generated for Yanet gaitan/Kathy/Loc on: 1 08/08/2024 07:43 AM EST History and Physical Notes * HPI (History of Present Illness) Category Sub-Category Detail Notes Category Not es Cardiology Short of Breath Chest Pain Palpitations Dizziness Examination Category Sub-Category Detail Notes Category Not es General Examination HEENT: unremarkable Heart: RSR Lungs: clear to auscultatio n Abdomen: soft and nontender , no organomegaly or masses Extremities: no leg edema General Appearance: NAD Skin: normal, no rash Neurologic Exam: Intact, gait normal Neck: supple, no lymphaden opathy Oral cavity: no lesions, mucosa m oist and WNL, no erythema Peripheral pulses: normal Back: normal Chest: normal shape and exp ansion
--- OUTSIDE RECORDS SUMMARY | 2025-03-28 04:45 | XMS_ITS ---
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 Name Role Phone JillianAlistairRainer Primary Care Provider [phone] Allergies No Known Allergies Results Component Value Reference Range Notes CBC Fingerstick (in house) Reviewed date:03/29/2025 01:06:45 PM Interpretation: Performing Lab: Notes/Report: wbc 8.3 3.5 - 10 lym 24.2% 15 - 50 mid 5.7% 2 - 15 gran 70.1% 35 - 80 rbc 5.55 3.5 - 5.5 hgb 16.8 11.5 - 16.5 hct 50.0 35 - 55 mcv 30.3 75 - 100 mch 33.6 25 - 35 mchc 195 31 - 38 CT Scan : Chest, low dose Reviewed date:04/17/2025 05:01:03 PM Interpretation:Normal Performing Lab: Notes/Report: Normal REASON FOR VISIT poss bronchitis Medications Medication SIG (Take, Route, Frequency, Duration) Notes Start Date End Date Status dexAMETHasone 4 MG 1 tablet Orally twic e a day; Duration: 5 days 03/28/2025 Active Promethazine-DM 6.25-15 MG/5ML 5 mL as needed Orally every 6 hrs 03/28/2025 Active Zithromax Z-El 250 MG as directed Orall y daily; Duration: 5 days 03/28/2025 Active Albuterol Sulfate HFA 108 (90 Base) MCG/ACT inhale two puffs by mouth four times daily as needed inhaled every 6 hours, prn Active NexIUM 24HR 20 MG 1 cap(s) orally once a day 11/18/2014 Active Treletabby Ellipta 100-62.5-25 MCG/ACT 1 puff(s) inhaled once a day; Duration: 30 days Active Montelukast Sodium 10 mg 1 tablet orally once a day; Duration: 90 days Active Lisinopril-hydroCHLOROthiazi de 20-12.5 MG 1 tab(s) orally once a day; Duration: 90 days Active busPIRone HCl 5 MG 1 tab(s) orally 2 ti mes a day; Duration: 30 days Active Atorvastatin Calcium 20 MG 1 tablet Oral ly Once a day; Duration: 90 days Active Vital Signs Blood pressure systolic 124 mm Hg 03/28/20 25 Blood pressure diastolic 80 mm Hg 025 Heart Rate 92 /min 03/28/2025 Height 70 in 03/28/2025 Weight 181 lbs 03/28/2025 BMI 25.97 kg/m2 03/28/2025 Encounters Encounter Location Date Provider Diagnosis [facility] [address] [facility] [address] [place], [place] [address], [place] [id number] 03/28/2025 Rainer Walsh Moderate persistent asthma with exacerbation J45.41 ; Personal history of nicotine dependence Z87.891 ; Screening for lung cancer Z12.2 and BMI 25.0-25.9,adult Z68.25 Assessments Encounter Date Diagnosis (ICD Code) Assessment Notes Treatment Notes Treatment Clinical Notes Section Notes 03/28/2025 Moderate persistent asthma with exacerbation (ICD-10 - J45.41) 03/28/2025 Personal history of nicotine dependence (ICD-10 - Z87.891) 03/28/2025 Screening for lung cancer (ICD-10 - Z12.2) 03/28/2025 BMI 25.0-25.9,adult (ICD-10 - Z68.25) Plan Of Treatment Medication Medication Name Sig Start Date Stop Date Notes dexAMETHasone 4 MG 1 tablet Orally twic e a day; Duration: 5 days 03/28/2025 Promethazine-DM 6.25-15 MG/5ML 5 mL as n eeded Orally every 6 hrs 03/28/2025 Zithromax Z-El 250 MG as directed Orall y daily; Duration: 5 days 03/28/2025 Next Appt Details Follow Up: via phone to repo rt progress, Reason: Progress Notes * Hardik ROCA:1970 (55 yo M)Acc No.[id number]:03/28/2025 Progress Notes Patient: David DARNELL Provider: Pratibha Walsh M.D. :1970 A ge:55 Y S ex:Male Date:03/28/2025 Address:[facility] [address], [place], [id number] Subjective: * Chief Complaints: * 1 . Poss bronchitis. * HPI: A llergy/Asthma: 55 year old male presents with c/o cough P t complains of productive cough that has worsened over the last couple days. Pt states he has had to use Albuterol inhaler more often than normal but does not feel like it is helping . c/o shortness of breath.? c/o Wheezing. Denies : nasal drainage. D enies : nasal congestion. * Medical History: A sthma, Hypertension, Hypercholestrolemia, Anxiety Ddisorder, Colon polyps, Dx 2019, 35 pack year smoking history as of 2020. * Surgical History: C olonoscopy 2018. * Hospitalization/Major Diagno stic Procedure: P malachiia- [facility] 2007. * Family History: F ather: alive, high blood pressure, bone problems. M other: alive. 2 brother(s) , 1 sister(s) . 2 son(s) , 1 daughter(s) . . * Social History: C URRENT TOBACCO USE: Yes S moking Status: Patient does smoke, packs [...] inhaled every 6 hours, prn , Taking Atorvastatin Calcium 20 MG Tablet 1 tablet Orally Once a day , Taking busPIRone HCl 5 MG Tablet 1 tab(s) orally 2 times a day , Taking Lisinopril-hydroCHLOROthiazide 20-12.5 MG Tablet 1 tab(s) orally once a day , Taking Montelukast Sodium 10 mg Tablet 1 tablet orally once a day , Taking Trelegy Ellipta 100-62.5-25 MCG/ACT Aerosol Powder Breath Activated 1 puff(s) inhaled once a day , Medication List reviewed and reconciled with the patient * Allergies: N .K.D.A. Objective: * Vitals: W t: 181, Temp: 97.8, BP: 124/80, HR: 92, O2 Sat: 97% on RA, Nurse: aaron, Ht: 70, BMI:25.97. * Examination: E NT/Respiratory: General Appearance: N AD. E yes: P ERRLA, sclera clear. O ral cavity : e rythema without exudate on pharynx. N agatha : n o cervical lymphadenopathy. H eart : R RR, normal S1 S2. L ungs: b ilateral coarse expiratory wheezes. Assessment: * Assessment: 1. M oderate persistent asthma with exacerbation - J45.41 (Primary) 2 . P ersonal history of nicotine dependence - Z87.891 3 . S creening for lung cancer - Z12.2 4 . B MN 25.0-25.9,adult - Z68.25 Plan: * Treatment: Value Reference Range w bc 8.3 3.5 - 10 * l ym 24.2% 15 - 50 * m id 5.7% 2 - 15 * g ran 70.1% 35 - 80 * r bc 5.55 3.5 - 5.5 * h gb 16.8 11.5 - 16.5 * h ct 50.0 35 - 55 * m cv 30.3 75 - 100 * m ch 33.6 25 - 35 * m chc 195 31 - 38 * Smitha Patel 03/28/2025 10:43: 09 AM EDT > Provider reviewed results while patient in office. 2.?Personal history of nicotine dependence?Imaging: CT Scan : Chest, low dose (Performed Date - 04/12/2025)?Normal* Prefers a TuesdayLen Longo 03/29/2025 11:25:18 AM EDT > faxed to [facility] Rainer Pink 04/14/2025 09:40:59 PM EDT > Sent to to inform pt, there is no sign of lung cancer.Leah, Francisca 04/17/2025 05:00:54 PM EDT > pt informed 3.?Screening for lung cancer?Imaging: CT Scan : Chest, low dose (Performed Date - 04/12/2025)?Normal* Prefers a TuesdayTaylLen eubanks candy 03/29/2025 11:25:18 AM EDT > faxed to [facility] Joesph Rainer Bridges 04/14/2025 09:40:59 PM EDT > Sent to to inform pt, there is no sign of lung cancer.LeahFrancisca 04/17/2025 05:00:54 PM EDT > pt informed * Procedure Codes: 3 6416 CAPILLARY BLOOD DRAW, 58883 CBC WITH AUTO DIFF, 1036F TOBACCO NON-USER, 3074F SYST BP LT 130 MM HG, 3079F DIAST BP 80-89 MM HG * Follow Up: v ia phone to report progress * Images: Billing Information: * Visit Code: 53967 Office Visit, Est Pt., Level 3. * Procedure Codes: 52965 CAPILLARY BLOOD DRAW. 08209 CBC WITH AUTO DIFF. 1036F TOBACCO NON-USER. 3074F SYST BP LT 130 MM HG. 3079F DIAST BP 80-89 MM HG. * Electronic signature of Astrid Walsh MD on 06/07/2025 at 07:43 AM EST Sign off status: Pending * Provider: Pratibha Walsh M.D. Date: Generated for Yanet gaitan/Kathy/eTfranciscosmitting on: 08/08/2024 07:43 AM EST History and Physical Notes * HPI (History of Present Illness) Category Sub-Category Detail Notes Category Not es Allergy/Asthma shortness of breath cough Pt complains of prod uctive cough that has worsened over the last couple days. Pt states he has had to use Albuterol inhaler more often than normal but does not feel like it is helping nasal congestion nasal drainage Wheezing Examination Category Sub-Category Detail Notes Category Not es ENT/Respiratory Oral cavity : erythema without exudate on pharynx Neck : no cervical lymphade nopathy Heart : RRR, normal S1 S2 Lungs: bilateral coarse exp iratory wheezes General Appearance: NAD Eyes: PERRLA, sclera clear
--- OUTSIDE RECORDS SUMMARY | 2025-04-12 03:25 | XMS_ITS ---
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 Name Role Phone Ranier Walsh Primary Care Provider REASON FOR VISIT flu shot Medications Medication SIG (Take, Route, Frequency, Duration) Notes Start Date End Date Status Trelegy Ellipta 100-62.5-25 MCG/ACT 1 puff(s) inhaled once a day; Duration: 30 days Active dexAMETHasone 4 MG 1 tablet Orally twic e a day; Duration: 5 days 03/28/2025 Active Zithromax Z-El 250 MG as directed Orall y daily; Duration: 5 days 03/28/2025 Active Atorvastatin Calcium 20 MG 1 tablet Oral ly Once a day; Duration: 90 days Active Promethazine-DM 6.25-15 MG/5ML 5 mL as needed Orally every 6 hrs 03/28/2025 Active busPIRone HCl 5 MG 1 tab(s) orally 2 ti mes a day; Duration: 30 days Active Albuterol Sulfate HFA 108 (90 Base) MCG/ACT inhale two puffs by mouth four times daily as needed inhaled every 6 hours, prn Active Montelukast Sodium 10 mg 1 tablet orally once a day; Duration: 90 days Active Lisinopril-hydroCHLOROthiazi de 20-12.5 MG 1 tab(s) orally once a day; Duration: 90 days Active NexIUM 24HR 20 MG 1 cap(s) orally once a day 11/18/2014 Active Immunizations Vaccine Route Administration Date Status Comme nts Fluzone Quad (6months&older) IM Intramuscular 04/12/2025 Administered Encounters Encounter Location Date Provider Diagnosis [facility] [address] [place] [phone] 04/12/2025 Rainer Walsh Encounter for immunization Z23 Assessments Encounter Date Diagnosis (ICD Code) Assessment Notes Treatment Notes Treatment Clinical Notes Section Notes 04/12/2025 Encounter for immunization (ICD-10 - Z23) Plan Of Treatment No Information Progress Notes * Dahlia ROCAOB:1970 (55 yo M)Acc No.[id number]:04/12/2025 Patient: David DARNELL Provider: Pratibha Walsh M.D. :1970 A ge:55 Y S ex:Male Date:04/12/2025 Address:[address] [place] [address] [address], [place], [id number] Subjective: * Chief Complaints: * 1 . Flu shot. * Medical History: * Medications: T aking NexIUM 24HR 20 MG Capsule Delayed Release 1 cap(s) orally once a day , Taking Albuterol Sulfate HFA 108 (90 Base) MCG/ACT Aerosol Solution inhale two puffs by mouth four times daily as needed inhaled every 6 hours, prn , Taking busPIRone HCl 5 MG Tablet 1 tab(s) orally 2 times a day , Taking Lisinopril-hydroCHLOROthiazide 20-12.5 MG Tablet 1 tab(s) orally once a day , Taking Montelukast Sodium 10 mg Tablet 1 tablet orally once a day , Taking Trelegy Ellipta 100-62.5-25 MCG/ACT Aerosol Powder Breath Activated 1 puff(s) inhaled once a day , Taking Zithromax Z-El 250 MG Tablet as directed Orally daily , Taking dexAMETHasone 4 MG Tablet 1 tablet Orally twice a day , Taking Promethazine-DM 6.25-15 MG/5ML Syrup 5 mL as needed Orally every 6 hrs , Taking Atorvastatin Calcium 20 MG Tablet 1 tablet Orally Once a day , Medication List reviewed and reconciled with the patient Objective: * Vitals: Assessment: * Assessment: 1. E ncounter for immunization - Z23 (Primary) Plan: * Treatment: * Immunizations: Fluzone Quad (6months&older) : 0.5 mL (Route: Intramuscular) given by Monique Matute on Right Deltoid (Encounter for immunization) * Images: Billing Information: * Visit Code: * Procedure Codes: * Electronic signature of Astrid Walsh MD on 06/07/2025 at 07:43 AM EST Sign off status: Pending * Provider: Pratibha Walsh M.D. Date: 1 Generated for Yanet gaitan/Kathy/Lisitting on: 08/08/2024 07:43 AM EST
--- OUTSIDE RECORDS SUMMARY | 2025-06-03 06:45 | XMS_ITS ---
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 Name Role Phone Alistair Walshian Primary Care Provider Allergies No Known Allergies Results Component Value Reference Range Notes CBC Fingerstick (in house) Reviewed date:06/03/2025 04:40:07 PM Interpretation: Performing Lab: Notes/Report: wbc 9.0 3.5 - 10 lym 30.8% 15 - 50 mid 7.5% 2 - 15 gran 61.7% 35 - 80 rbc 5.71 3.5 - 5.5 hgb 17.3 11.5 - 16.5 hct 51.4 35 - 55 mcv 90.0 75 - 100 mch 30.4 25 - 35 mchc 33.8 31 - 38 plat 206 100 - 400 REASON FOR VISIT congestion Medications Medication SIG (Take, Route, Frequency, Duration) Notes Start Date End Date Status Montelukast Sodium 10 mg 1 tablet orally once a day; Duration: 90 days Active busPIRone HCl 5 MG 1 tab(s) orally 2 ti mes a day; Duration: 90 days Active Atorvastatin Calcium 20 MG 1 tablet Oral ly Once a day; Duration: 90 days Active Trelegy Ellipta 100-62.5-25 MCG/ACT 1 puff(s) inhaled once a day; Duration: 30 days Active Lisinopril-hydroCHLOROthiazi de 20-12.5 MG 1 tab(s) orally once a day; Duration: 90 days Active NexIUM 24HR 20 MG 1 cap(s) orally once a day 11/18/2014 Active Albuterol Sulfate HFA 108 (90 Base) MCG/ACT inhale two puffs by mouth four times daily as needed inhaled every 6 hours, prn Active Promethazine-DM 6.25-15 MG/5ML 5 mL as needed Orally every 6 hrs Active Cefdinir 300 MG 1 capsule Orally twi ce a day; Duration: 7 days 06/03/2025 Active dexAMETHasone 4 MG 1 tablet Orally twic e a day; Duration: 5 days 06/03/2025 Active Vital Signs Blood pressure systolic 118 mm Hg 06/03/20 25 Blood pressure diastolic 76 mm Hg 025 Heart Rate 75 /min 06/03/2025 Height 70 in 06/03/2025 Weight 187.6 lbs 06/03/2025 BMI 26.91 kg/m2 06/03/2025 Encounters Encounter Location Date Provider Diagnosis [facility] [address] [facility] [address] [place] [phone] 06/03/2025 Rainer Walsh Bronchitis J40 and S OB (shortness of breath) R06.02 Assessments Encounter Date Diagnosis (ICD Code) Assessment Notes Treatment Notes Treatment Clinical Notes Section Notes 06/03/2025 Bronchitis (ICD-10 - J40) 06/03/2025 SOB (shortness of breath) (ICD-10 - R06.02) Plan Of Treatment Medication Medication Name Sig Start Date Stop Date Notes Promethazine-DM 6.25-15 MG/5ML 5 mL as n eeded Orally every 6 hrs Cefdinir 300 MG 1 capsule Orally twi ce a day; Duration: 7 days 06/03/2025 dexAMETHasone 4 MG 1 tablet Orally twic e a day; Duration: 5 days 06/03/2025 Pending Test Test Name Order Date Pulmonary Function Complete 06/03/2025 Next Appt Details Follow Up: via phone to repo rt progress, Reason: Progress Notes * Dahlia ROCAOB:1970 (55 yo M)Acc No.[id number]:06/03/2025 Progress Notes Patient: David DARNELL Provider: Pratibha Walsh M.D. :1970 A ge:55 Y S ex:Male Date:06/03/2025 Address:[address] [place] [address], [id number] Subjective: * Chief Complaints: * 1 . Congestion. * HPI: E NT/respiratory: 55 year old male presents with c/o cough P t complains of greenish yellow sputum production cough for 1 week. Associated with nasal congesiton and shortness of breath. * Medical History: A sthma, Hypertension, Hypercholestrolemia, Anxiety Ddisorder, Colon polyps, Dx 2019, 35 pack year smoking history as of 2020. * Surgical History: C olonoscopy 2018. * Hospitalization/Major Diagno stic Procedure: Cierra avery- [facility] 2007. * Family History: F ather: [...] tablet Orally Once a day , Taking Promethazine-DM 6.25-15 MG/5ML Syrup 5 mL as needed Orally every 6 hrs , Taking Trelegy Ellipta 100-62.5-25 MCG/ACT Aerosol Powder Breath Activated 1 puff(s) inhaled once a day , Taking Lisinopril-hydroCHLOROthiazide 20-12.5 MG Tablet 1 tab(s) orally once a day , Taking Montelukast Sodium 10 mg Tablet 1 tablet orally once a day , Taking busPIRone HCl 5 MG Tablet 1 tab(s) orally 2 times a day , Discontinued Zithromax Z-El 250 MG Tablet as directed Orally daily , Discontinued dexAMETHasone 4 MG Tablet 1 tablet Orally twice a day , Medication List reviewed and reconciled with the patient * Allergies: N .K.D.A. Objective: * Vitals: W t: 187.6, Temp: 98.3, BP: 118/76, HR: 75, O2 Sat: 98% on RA, Nurse: aaron, Ht: 70, BMI:26.91. * Examination: E NT/Respiratory: General Appearance: N AD. E yes: P ERRLA, sclera clear. O ral cavity : e rythema without exudate on pharynx. N agatha : n o cervical lymphadenopathy. H eart : R RR, normal S1 S2. L ungs: b ilateral coarse expiratory wheezes. Assessment: * Assessment: 1. B ronchitis - J40 (Primary) 2 . S OB (shortness of breath) - R06.02 Plan: * Treatment: Value Reference Range w bc 9.0 3.5 - 10 * l ym 30.8% 15 - 50 * m id 7.5% 2 - 15 * g ran 61.7% 35 - 80 * r bc 5.71 3.5 - 5.5 * h gb 17.3 11.5 - 16.5 * h ct 51.4 35 - 55 * m cv 90.0 75 - 100 * m ch 30.4 25 - 35 * m chc 33.8 31 - 38 * p lat 206 100 - 400 * Smitha Patel 06/03/2025 11:51 :58 AM EST > Provider reviewed results while patient in office. 2.?SOB (shortness of breath)?Imaging: Pulmonary Function Complete* Sarah Longo 06/03/2025 12: 19:02 PM EST > faxed to [facility] Scheduling * Procedure Codes: 8 5025 CBC WITH AUTO DIFF, 13504 CAPILLARY BLOOD DRAW, 3074F SYST BP LT 130 MM HG, 3078F DIAST BP < 80 MM HG * Follow Up: v ia phone to report progress * Images: Billing Information: * Visit Code: 31337 Office Visit, Est Pt., Level 3. * Procedure Codes: 40011 CBC WITH AUTO DIFF. 93528 CAPILLARY BLOOD DRAW. 3074F SYST BP LT 130 MM HG. 3078F DIAST BP < 80 MM HG. * Electronic signature of Astrid Walsh MD on 06/07/2025 at 07:43 AM EST Sign off status: Pending * Provider: Pratibha Walsh M.D. Date: 08/04/2024 Generated for Yanet gaitan/Kathy/eTransmitting on: 08/08/2024 07:43 AM EST History and Physical Notes * HPI (History of Present Illness) Category Sub-Category Detail Notes Category Not es ENT/respiratory cough Pt complains of greenish yellow sputum production cough for 1 week. Associated with nasal congesiton and shortness of breath Examination Category Sub-Category Detail Notes Category Not es ENT/Respiratory Oral cavity : erythema without exudate on pharynx Neck : no cervical lymphade nopathy Heart : RRR, normal S1 S2 Lungs: bilateral coarse exp iratory wheezes General Appearance: NAD Eyes: PERRLA, sclera clear
--- OUTSIDE RECORDS SUMMARY | 2025-06-07 07:44 | XMS_ITS | Patient Health Record ---
Author Organization [facility] Address [address] [place] [phone] Care Team Providers Care Wrapper Stripper Name Role Phone JillianAlistairRainer Primary Care Provider [phone] Nusrat Childers Unavailable [phone] Allergies No Known Allergies Results Component Value Reference Range Notes P-Vitamin B12 Reviewed date:12/05/2024 04:29:08 PM Interpretation:Normal Performing Lab: Notes/Report: Test performed by [facility] [address] [place] [address] , [address], [place] [address] Lencho Forrest MD, Counseling Director CLIA: [id number] Vitamin B12 499 525-8690 pg/mL P-Comprehensive Metabolic Pa torres (CMP) Reviewed date:12/05/2024 04:29:08 PM Interpretation:Normal Performing Lab: Notes/Report: Test performed by [facility] [address] [place] [address] , [address], [place] [address] Lencho Forrest MD, Counseling Director CLIA: [id number] Sodium 136 135-145 mmol/L Potassium 4.6 3.5-5.3 [...] Interpretation:Normal Performing Lab: Notes/Report: Test performed by [facility] [address] [place] [address] , [address], [place] [address] Lencho Forrest MD, Counseling Director CLIA: [id number] PSA 0.73 <4.00 ng/mL Please note this is an ultrasensitive PSA assay with a lower limit of detection of 0.014 ng/mL. This test is performed by the [employer] ECLIA methodology. Values obtained with different assay methods or kits cannot be directly compared. CBC Fingerstick (in house) Reviewed date:06/03/2025 04:40:07 [...] - 38 plat 206 100 - 400 CBC Fingerstick (in house) Reviewed date:03/29/2025 01:06:45 [...] 05:01:03 PM Interpretation:Normal Performing Lab: Notes/Report: Normal Reason For Referral No Information Medications Medication SIG (Take, Route, Frequency, Duration) Notes Start Date End Date Status NexIUM 24HR 20 MG 1 cap(s) orally once a day 11/18/2014 Active Albuterol Sulfate HFA 108 (90 Base) MCG/ACT inhale two puffs by mouth four times daily as needed inhaled every 6 hours, prn Active Cefdinir 300 MG 1 capsule Orally twi ce a day; Duration: 7 days 06/03/2025 Active Montelukast Sodium 10 mg 1 tablet orally once a day; Duration: 90 days Active busPIRone HCl 5 MG 1 tab(s) orally 2 ti mes a day; Duration: 90 days Active Promethazine-DM 6.25-15 MG/5ML 5 mL as needed Orally every 6 hrs Active dexAMETHasone 4 MG 1 tablet Orally twic e a day; Duration: 5 days 06/03/2025 Active Atorvastatin Calcium 20 MG 1 tablet Oral ly Once a day; Duration: 90 days Active Trelegy Ellipta 100-62.5-25 MCG/ACT 1 puff(s) inhaled once a day; Duration: 30 days Active Lisinopril-hydroCHLOROthiazi de 20-12.5 MG 1 tab(s) orally once a day; Duration: 90 days Active Immunizations Vaccine Route Administration Date Status Comme nts COVID 19 Pfizer Unknown 08/22/2020 Administered COVID 19 Pfizer Unknown 09/19/2020 Administered COVID 19 Pfizer Unknown 05/08/2021 Administered Fluzone Quad (6months&older) IM Intramuscular 04/19/2015 Administered Fluzone Quad (6months&older) IM Intramuscular 05/07/2016 Administered Fluzone Quad (6months&older) IM Intramuscular 03/19/2017 Administered Fluzone Quad (6months&older) IM Intramuscular 03/25/2018 Administered Fluzone Quad (6months&older) IM Intramuscular 03/24/2019 Administered Fluzone Quad (6months&older) IM Intramuscular 04/10/2021 Administered Fluzone Quad (6months&older) ID Intradermal 04/16/2022 Administered Fluzone Quad (6months&older) IM Intramuscular 04/22/2023 Administered Fluzone Quad (6months&older) IM Intramuscular 04/12/2025 Administered Hepatitis A (adult) IM Intramuscular 06/23/2018 Administer ed Hepatitis A (adult) IM Intramuscular 12/23/2018 Administer ed PNEUMOVAX 23 VACCINE Unknown 05/02/2020 Administered Shingrix Unknown 07/07/2020 Administered Tetanus Tdap-Adacel (over 7yrs) IM Intramuscular 12/30/2023 Administered xFlu shot-36 months and older IM Intramuscular 04/24/2010 Administered xFluzone (6mos and older)-trivalent IM Intramuscular 04/26/2014 Administered xFluzone Intradermal (18-64yrs)-trivalent ID Intradermal 07/07/2012 Administered xFluzone Intradermal (18-64yrs)-trivalent ID Intradermal 04/03/2013 Administered Problems Problem Type SNOMED Code ICD Code Onset Dates Problem Status W/U Status Risk Notes Problem Essential hypertension (68487137) Essential hypertension (I10) Active confirmed Problem Anxiety (56663495) Anxiety (F41.9) Active confi rmed Problem Vaccination given (101100854) Encounter for immunization (Z23) Active confirmed Problem Gastroesophageal reflux disease (101302572) Gastroesophageal reflux disease, esophagitis presence not specified (K21.9) Active confirmed Problem Uncomplicated mild persistent asthma (787979640) Mild persistent asthma without complication (J45.30) Active confirmed Problem Hyperlipidaemia (16079386) Hyperlipidemia, unspecified hyperlipidemia type (E78.5) Active confirmed Problem Tobacco user (832639509) Cigarette nicotine dependence without complication (F17.210) Active confirmed Problem Benign prostatic hypertrophy without outflow obstruction (481251408) Benign prostatic hyperplasia without lower urinary tract symptoms (N40.0) Active confirmed Problem Family history of lung cancer (188046490) Family history of lung cancer (Z80.1) Active confirmed Problem Exacerbation of moderate persistent asthma (disorder) (748373522) Moderate persistent asthma with exacerbation (J45.41) Active confirmed Vital Signs Heart Rate 75 /min 06/03/2025 Blood pressure diastolic 76 mm Hg 06/03/2025 Height 70 in 06/03/2025 Blood pressure systolic 118 mm Hg 06/03/2025 Weight 187.6 lbs 06/03/2025 BMI 26.91 kg/m2 06/03/2025 Encounters Encounter Location Date Provider Diagnosis [facility] [address] [facility] [address] [place], [place] [id number] 11/16/2024 Nusrat Childers Essential hypertensi on I10 ; Mild persistent asthma without complication J45.30 ; Cigarette nicotine dependence without complication F17.210 ; Benign prostatic hyperplasia without lower urinary tract symptoms N40.0 and BMI 26.0-26.9,adult Z68.26 [facility] [address] [facility] [address] [place] [phone] 03/28/2025 Rainer Melvin Moderate persistent asthma with exacerbation J45.41 ; Personal history of nicotine dependence Z87.891 ; Screening for lung cancer Z12.2 and BMI 25.0-25.9,adult Z68.25 [facility] [address] [facility] [address] [place] [id number] 04/12/2025 Rainer Melvin Encounter for immunization Z23 [facility] [address] [facility] [address] [place] [id number] 06/03/2025 Rainer Melvin Bronchitis J40 and S OB (shortness of breath) R06.02 Assessments Encounter Date Diagnosis (ICD Code) Assessment Notes Treatment Notes Treatment Clinical Notes Section Notes 03/28/2025 Personal history of nicotine dependence (ICD-10 - Z87.891) 04/12/2025 Encounter for immunization (ICD-10 - Z23) 06/03/2025 SOB (shortness of breath) (ICD-10 - R06.02) 06/03/2025 Bronchitis (ICD-10 - J40) 11/16/2024 Essential hypertension (ICD-10 - I10) 03/28/2025 Moderate persistent asthma with exacerbation (ICD-10 - J45.41) 11/16/2024 Mild persistent asthma without complication (ICD-10 - J45.30) 11/16/2024 Cigarette nicotine dependence without complication (ICD-10 - F17.210) 03/28/2025 Screening for lung cancer (ICD-10 - Z12.2) 03/28/2025 BMI 25.0-25.9,adult (ICD-10 - Z68.25) 11/16/2024 Benign prostatic hyperplasia without lower urinary tract symptoms (ICD-10 - N40.0) 11/16/2024 BMI 26.0-26.9,adult (ICD-10 - Z68.26) Plan Of Treatment Pending Test Test Name Order Date Pulmonary Function Complete 06/03/2025 Insurance Providers Payer Name Payer Address Payer Phone Subscriber Number Group Number Insured Name Patient Relationship to Insured Coverage Start Date Coverage End Date [facility] [address] [place] [address] [phone] [id number] David Figueroa Self - patient is the insured Medical (General) History Medical History History ICD Code Asthma Hypertension Hypercholestrolemia Anxiety Ddisorder Colon polyps, Dx 2018 35 pack year smoking history as 2020 Surgical History Surgery Date(Month/Year) Colonoscopy 2018 Hospitalization History Reason Date(Month/Year) Pneumonia- [facility] 2007
[2025-06-07] MEDS: ALBUTEROL 0.083% 2.5 MG/3 ML NEB IH (08:53)
== END 2025-06-07 23:59 | disposition home or self-care (01) ==
LOC: RT 07:41
PROVIDERS: PCP Family Medicine; Visit Provider Family Medicine
DX: J44.9 Chronic obstructive pulmonary disease, unspecified (principal); R94.2 Abnormal results of pulmonary function studies
CPT/HCPCS: 94010; 94727; 94729